=== PATIENT | male | born 1950 | race Caucasian/White ===

== ENCOUNTER 2023-03-05 08:43 | Emergency (ER) | payer OTHER ==
[~2023-03-05] VITALS: Ht 152.4 cm; Wt 85.3 kg
[~2023-03-05 08:43] MED LIST: CLONAZEPAM1 MG; HYZAAR 100/25 T1 TAB; PNEU16DI2; PRAVACHOL80 MG; ULTRACET PO
[2023-03-05] MEDS ORDERED: TRAZODONE HCL50 MG PO (09:20)
== END 2023-03-05 12:44 | disposition home or self-care (01) ==
LOC: ER 08:43
DX: N20.1 Calculus of ureter (principal); R10.9 Unspecified abdominal pain; I10 Essential (primary) hypertension